=== PATIENT | female | born 1980 | race Two or more races ===

== ENCOUNTER 2025-05-24 08:29 | Emergency (ER) | payer OTHER ==
[~2025-05-24] VITALS: Ht 165.1 cm; Wt 70.3 kg
[2025-05-24] MEDS ORDERED: SERTRALINE20 MG/1 ML PO (08:35)
[2025-05-24] MEDS ORDERED: 0.9 % SODIUM CHLORIDE 1,000 ML IV ONE (08:45)
[2025-05-24] MEDS ORDERED: FAMOtidine 10 MG/ML (4ML VIAL) IV ONE (08:45)
[2025-05-24] MEDS ORDERED: KETOROLAC TROMETHAMINE 30 MG VIAL IV ONE (08:45)
[2025-05-24] MEDS ORDERED: ONDANSETRON HCL 2 MG/ML VIAL IV ONE (09:00)
[2025-05-24] MEDS ORDERED: ONDANSETRON HCL 2 MG/ML VIAL ONE (09:02)
[2025-05-24] MEDS ORDERED: FAMOTIDINE/PF 20 MG/2 ML VIAL ONE (09:02)
[2025-05-24] MEDS ORDERED: KETOROLAC TROMETHAMINE 30 MG VIAL ONE (09:02)
[2025-05-24 09:47] LABS: BASO % 0.3 % (0.1-1.2); HEMATOCRIT 36.2 % (34.1-44.9); HEMOGLOBIN 12.2 g/dL (11.2-15.7); LYMPH # 1.22 (1.18-3.74); LYMPH % 20.4 % (19.3-53.1); MEAN CORPUSCULAR HEMOGLOBIN 29.6 pg (25.6-32.2); MONO % 8.4 % (4.7-12.5); NEUT # 4.23 (1.56-6.13); NEUT % 70.7 % (34.0-71.1); PLATELET COUNT 204 K/uL (163-369); RED BLOOD COUNT 4.12 M/uL (3.93-5.22); RED CELL DISTRIBUTION WIDTH 12.7 % (11.6-14.4)
[2025-05-24 10:07] LABS: INR 0.94; PARTIAL THROMBOPLASTIN TIME 27.4 SECONDS (22.0-34.0); PROTHROMBIN TIME 10.3 SECONDS (9.0-11.5)
[2025-05-24 10:12] LABS: PH,URINE 5.5 (5.0-8.0); URINE APPEARANCE Clear; URINE BILIRRUBIN Negative (NEGATIVE); URINE BLOOD Small; URINE COLOR Yellow; URINE GLUCOSE Negative (NEGATIVE); URINE LEUKOCYTE Small; URINE NITRATE Negative; URINE PROTEIN Trace (NEGATIVE)
[2025-05-24 10:17] LABS: URINE BACTERIA 1278.9 uL (0.0-1933); URINE EPITHELIAL CELLS 18.3 uL (0.0-38.8); URINE RBC 17.6 uL (0.0-20.8); URINE WBC 59.6 uL (0.0-23.2)
[2025-05-24 10:19] LABS: ALBUMIN 3.6 gm/dL (3.4-5.0); ALKALINE PHOSPHATASE 65 U/L (50-136); ALT/SGPT 25 U/L (12-78); ANION GAP 10 (10.0-20.0); AST/SGOT 18 U/L (15-37); BILIRUBIN TOTAL 0.23 mg/dL (0.3-1.2); BLOOD UREA NITROGEN 13 mg/dL (7-18); BUN CREA RATIO 16 (7.0-25.0); CALCIUM 8.5 mg/dL (8.5-10.1); CARBON DIOXIDE 26 mEq/L (21-32); CHLORIDE 109 mmol/L (98-107); CREATININE SERUM 0.83 mg/dL (0.55-1.02); GFR 75.39; GLOBULINA 3.5 G/DL (2.4-3.5); GLUCOSE FASTING 80 mg/dL (65-100); HCG QUANTITATIVE < 1 mUI/mL (1-3); OSMOLALITY SERUM 280 MOSM/KG (275-295); POTASSIUM 4.05 mEq/L (3.5-5.1); SODIUM 141 mmol/L (136-145); TOTAL PROTEIN 7.1 gm/dL (6.4-8.2)
[2025-05-24 10:36] LABS: INFLUENZA A AG NEGATIVE (NEGATIVE); INFLUENZA B AG NEGATIVE (NEGATIVE)
[2025-05-24 10:39] LABS: COVID-19 AG POSITIVE (NEGATIVE)
[2025-05-24 10:44] LABS: URINE CAST 0.29 uL (0.0-1.40); URINE KETONE 40 (NEGATIVE)
[2025-05-24] MEDS ORDERED: SUMATRIPTAN SUCCINATE 6 MG/0.5 ML VIAL SUBCUTANEO ONE ×2 (12:59→13:00)
== END 2025-05-24 17:57 | disposition home or self-care (01) ==
LOC: ER 13:24
PROVIDERS: General Practice
DX: U07.1 COVID-19 (principal); R11.0 Nausea